=== PATIENT | female | born 1945 | race American Indian/Alaskan Native ===

== ENCOUNTER 2017-07-05 10:51 | Outpatient (CLI) | payer MEDICARE ==
--- NOTE | 2017-07-06 14:12 | Mammography Report ---
BILATERAL DIGITAL SCREENING MAMMOGRAM with CAD : 07/05/17 10:51:00 CLINICAL: Routine screening. COMPARISON:03/23/13 FINDINGS: The breasts are heterogeneously dense, which may obscure small masses.Bilateral benign vascular calcifications. No mass, architectural distortion or suspicious calcifications. IMPRESSION: No mammographic evidence of malignancy. BI-RADS CATEGORY: 2 -- Benign RECOMMENDATION: Routine mammographic screening in one year. COMMENT: Patient follow-up letters are generated by our [employer] application.
--- NOTE | 2017-07-06 14:18 | Mammography Report ---
BONE DEXA:07/05/17 11:00:00 CLINICAL: Postmenopausal COMPARISON: 07/02/15 and 01/31/13 TECHNIQUE: Two site bone DEXA performed on an Hologic scanner. FINDINGS: The average BMD of the lumbar spine L1-L4 is 0.850g/cm squared with a T-score =-1.8 and a Z score of -0.3. This compares to 0.814 g/cm squared on the last exam and represents a +4.3% change in BMD from the previous study and an 11.7% change from baseline. The average BMD of the left hip is 0.703g/cm squared with a T-score =-2.0 and a Z score of -0.9.This compares to 0.75g/cm squared on the last exam and represents a -3.0% change in BMD from the previous study and a +1.0% change from baseline. IMPRESSION: 1. WHO classification: Osteopenia with increased fracture risk based on L-spine and left hip measurements. % in BMD compared to baseline. 2. A significant improvement in spine BMD and a slight decline in left hip BMD compared to last exam. 3. The FRAX 10 year fracture probability for a major osteoporotic fracture is 5.5%. 4. The FRAX 10 year fracture probability for hip fracture is 1.4%. Note: FRAX version 3.01. Fracture probability calculated for an untreated patient. Fracture probability may be lower if the patient has received treatment. RECOMMENDATION: Clinical correlation and routine screening. DEFINITIONS: BMD = Bone Mineral Density T-score = BMD related to mean peak bone mass of young adult (mean expressed in Standard Deviation) Z-score = Age matched BMD expressed in SD World Health Organization (WHO) Diagnostic Criteria Normal T-score > -1 SD Osteopenia T-score between -1 and -2.4 SD Osteoporosis T-score -2.5 SD or below NOTE: BMD is not the only risk factor for fracture; also consider factors such as the patient's age, risk of falling, previous osteoporotic fracture, family history of osteoporotic fractures, current smoker, and low body weight. All treatment decisions require clinical judgment and consideration of individual patient factors, including patient preferences, comorbidities, previous drug use and wrist factors not captured in the FRAX model (e.g. frailty, falls, vitamin D deficiency, increased bone turnover, interval significant decline in BMD). Z-scores are not calculated if >80 years of age.
== END 2017-07-05 10:52 | disposition home or self-care (01) ==
LOC: MAMMO 10:51
PROVIDERS: ATTEND Family Medicine
DX: Z12.31 Encounter for screening mammogram for malignant neoplasm of breast (principal); M85.89 Other specified disorders of bone density and structure, multiple sites; Z78.0 Asymptomatic menopausal state
CPT/HCPCS: 77067; 77080